=== PATIENT | female | born 1955 | race Caucasian/White ===

== ENCOUNTER → 2016-06-26 | Outpatient (CLI) | payer OTHER ==
--- NOTE | 2016-06-26 08:23 | US ---
EXAMINATION TYPE: US kidneys/renal and bladder DATE OF EXAM: 06/26/2016 8:01 AM COMPARISON: Prior renal ultrasound April 01, 2016. Prior CT abdomen and pelvis April 09, 2016. CLINICAL HISTORY: N28.89 Renal Mass. Left nephrectomy 2011 due to renal cancer, right renal cryoablat ion to mass 2012 EXAM MEASUREMENTS: Right Kidney: 10.9 x 4.9 x 5.4 cm Left Kidney: Surgically absent TECHNOLOGIST IMPRESSION: Right Kidney: hyperechoic area anterior mid, lower pole as noted on prior exam, probable scarring. Pr ominent renal pelvis Left Kidney: Surgically absent Bladder: appears wnl Bilateral Jets seen: right seen There is no evidence for hydronephrosis at this point in time in the remnant right kidney. No nephro lithiasis is seen. No masses are identified on images saved. The urinary bladder is anechoic. Dista l right jet is seen. Hypoechoic area anterior mid to lower pole level right kidney noted by technologist was not well seen on images saved. No suspicious lesion is seen on images saved or recent CT. Central anechoic fullnes s is felt to reflect prominent pelvis, no calyceal dilatation is seen to suggest hydronephrosis. IMPRESSION: No new suspicious mass identified at level of left renal fossa or within remnant right kidney.
== END ==
LOC: RADUSWWP 07:40
PROVIDERS: ATTEND Family Medicine
DX: N28.89 Other specified disorders of kidney and ureter (principal)
CPT/HCPCS: 76770

== ENCOUNTER → 2016-07-11 | Outpatient (CLI) | payer OTHER ==
[2016-07-11 14:39] LABS: Basophils # (A) 0.1 k/uL (0-0.2); Basophils % (A) 1 %; CH 28.9; CHCM 34.1; Eosinophils # (A) 0.1 k/uL (0-0.7); Eosinophils % (A) 2 %; HCT 43.4 % (34.0-46.0); HDW 2.94; HGB 14.7 gm/dL (11.4-16.0); Luc # (Auto) 0.14; Luc % (Auto) 3; Lymphocytes % (A) 18 %; MCH 28.8 pg (25.0-35.0); MCHC 33.8 g/dL (31.0-37.0); MCV 85.1 fL (80.0-100.0); Mean Platelet Volume 9.6; Monocytes # (A) 0.3 k/uL (0-1.0); Monocytes % (A) 6 %; Neutrophils # (A) 4.1 k/uL (1.3-7.7); Neutrophils % (A) 72 %; RDW 13.1 % (11.5-15.5); WBC 5.7 k/uL (3.8-10.6); WBC (Perox) 5.65
[2016-07-11 14:48] LABS: Calcium 10.1 mg/dL (8.4-10.2); Potassium 4.5 mmol/L (3.5-5.1); Total Bilirubin 1.2 mg/dL (0.2-1.3); Total Protein 7.2 g/dL (6.3-8.2)
--- NOTE | 2016-07-11 14:58 | CT ---
EXAMINATION TYPE: CT abdomen pelvis wo con DATE OF EXAM: 07/11/2016 2:39 PM COMPARISON: 04/09/2016, 07/01/2012, 08/05/2011. HISTORY: 61-year-old female right-sided abdominal pain and pain during urination. Constipation. CT DLP: 712.6 mGycm. Automated exposure control for dose reduction was used. TECHNIQUE: Contiguous axial scanning of the abdomen and pelvis without IV contrast. Coronal and sagit kristina reconstructions performed. FINDINGS: Heart is normal size without pericardial effusion. Some nodular subpleural atelectasis posterior righ t lung base. No pleural effusion. Strandy atelectasis inferior lingula. There is a small hiatal hernia. A geographic area of hypodensity measuring 1.9 cm along the falciform ligament likely focal fat, also seen on 04/09/2016 and slightly larger as compared to 07/01/2012. Otherwise, noncontrast appearance of the liver, gallbladder, adrenal glands, spleen, and pancreas casa w no gross abnormality. There is a cortical defect along the lateral right kidney suggesting prior surgical intervention. No new contour deforming right renal lesion. The left kidney is surgically absent with surgical clips in the left retroperitoneum. The left renal fossa remains clear. No dilated small bowel, free fluid, or free air. No mesenteric or retroperitoneal lymphadenopathy. Normal appendix. Scattered [id number] stool without pericolonic inflammatory change. A couple proximal sigmoid diverticula without pericolonic inflammatory change. Bladder is partially urine distended. Uterus and small ovaries are visualized. No abnormal fluid juvenal ection in the pelvis. Scattered small iliac chain lymph nodes are demonstrated. 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 Findings are stable from 2012. Degenerative disc disease lowe r lumbar spine and endplate spondylosis in the lower thoracic spine. IMPRESSION: 1. A 1.9 cm hypodense area along the falciform ligament within the left liver lobe appears to have be en present on 04/09/2016 and is larger from 2012. Focal fat is suspected but the area is incompletely characterized on this noncontrast study. Given the patient's history of renal cell carcinoma, consid er liver MRI especially if CT contrast is contraindicated. 2. Status post left nephrectomy and wedge resection along the lateral right kidney. 3. Mild proximal sigmoid diverticulosis without acute diverticulitis. 4. Small hiatal hernia.
== END ==
LOC: RADCTMAIN 14:04
PROVIDERS: ATTEND Nurse Practitioner Adult Health
DX: K44.9 Diaphragmatic hernia without obstruction or gangrene (principal); K57.30 Diverticulosis of large intestine without perforation or abscess without bleeding; K76.89 Other specified diseases of liver; Z90.5 Acquired absence of kidney; R10.9 Unspecified abdominal pain
CPT/HCPCS: 74176; 80053; 85025

== ENCOUNTER → 2016-07-29 | Outpatient (CLI) | payer OTHER ==
--- NOTE | 2016-07-29 11:31 | MR ---
MRI liver without contrast HISTORY: Hepatomegaly, abdominal pain Correlation to CT scan abdomen and pelvis without contrast dated June, prior abdomen MRI 21 July 2012 FINDINGS: The area described in prior CT scan adjacent to the falciform ligament and liver span are n ormal, there is no evident mass. Signal drop on out of phase imaging within the liver suggestive of f atty infiltration. Lack of contrast could compromise sensitivity. Postop change noted to the right kidney. Patient shows no left kidney status post left nephrectomy. A drenal glands are unremarkable. Gallbladder is normal. The spleen, pancreas are unremarkable. There is a small hiatal hernia. There i s no ascites. IMPRESSION: Fatty infiltration of the liver, there are postop changes.
== END | disposition home or self-care (01) ==
LOC: RADMRIMAIN 09:01
PROVIDERS: ATTEND Family Medicine
DX: K76.0 Fatty (change of) liver, not elsewhere classified (principal); Z90.5 Acquired absence of kidney
CPT/HCPCS: 74181

== ENCOUNTER → 2016-09-30 | Outpatient (CLI) | payer OTHER ==
[2016-09-30 10:11] LABS: Basophils % (A) 1 %; CH 29.2; CHCM 33.7; Eosinophils # (A) 0.1 k/uL (0-0.7); Eosinophils % (A) 3 %; HCT 42.3 % (34.0-46.0); Luc # (Auto) 0.16; Luc % (Auto) 4; Lymphocytes # (A) 1.1 k/uL (1.0-4.8); Lymphocytes % (A) 26 %; MCH 28.9 pg (25.0-35.0); MCHC 33.2 g/dL (31.0-37.0); MCV 87.1 fL (80.0-100.0); Mean Platelet Volume 9.7; Monocytes # (A) 0.3 k/uL (0-1.0); Monocytes % (A) 7 %; Neutrophils # (A) 2.6 k/uL (1.3-7.7); Neutrophils % (A) 60 %; RBC 4.85 m/uL (3.80-5.40); RDW 13.8 % (11.5-15.5); WBC 4.4 k/uL (3.8-10.6); WBC (Perox) 4.38
[2016-09-30 10:42] LABS: Appearance,Urine Clear (Clear); Bilirubin,Urine Negative (Negative); Glucose,Urine (UA) Negative (Negative); Ketones,Urine Negative (Negative); Leukocyte Esterase,Urine Trace (Negative); Mucus,Urine Rare /hpf; Nitrite,Urine Negative (Negative); PH, Urine 5.5 (5.0-8.0); Particle Count 880; Protein,Urine Negative (Negative); Specific Gravity,Urine 1.007 (1.001-1.035); Squamous Epithelial Cell,Urine 1 /hpf (0-4); UA Billing (MACRO vs. MICRO) MICRO; Urobilinogen,Urine <2.0 mg/dL (<2.0); WBC,Urine 2 /hpf (0-5)
[2016-09-30 11:09] LABS: Calcium 9.9 mg/dL (8.4-10.2); Magnesium 1.8 mg/dL (1.6-2.3); Phosphorous 3.5 mg/dL (2.5-4.5); Potassium 4.6 mmol/L (3.5-5.1); Total Bilirubin 1.3 mg/dL (0.2-1.3); Total Protein 6.8 g/dL (6.3-8.2); Uric Acid 7.3 mg/dL (3.7-7.4)
[2016-09-30 11:18] LABS: % Iron Saturation 20.8 % (20-50)
[2016-09-30 11:31] LABS: Creatinine,Urine Random 65.1 mg/dL
== END | disposition home or self-care (01) ==
LOC: LABWHC1 09:08
PROVIDERS: ATTEND Nurse Practitioner Family
DX: I12.9 Hypertensive chronic kidney disease with stage 1 through stage 4 chronic kidney disease, or unspecified chronic kidney disease (principal); N18.3 Chronic kidney disease, stage 3 (moderate); R80.9 Proteinuria, unspecified; D64.9 Anemia, unspecified; E55.9 Vitamin D deficiency, unspecified; E21.3 Hyperparathyroidism, unspecified; N39.0 Urinary tract infection, site not specified; M10.9 Gout, unspecified
CPT/HCPCS: 36415; 80053; 81001; 82306; 82570; 82728; 83540; 83550; 83735; 83970; 84100; 84156; 84550; 85025

== ENCOUNTER → 2016-11-21 | Outpatient (CLI) | payer OTHER ==
--- NOTE | 2016-11-21 10:26 | CT ---
EXAMINATION TYPE: CT brain wo con, CT iac wo con DATE OF EXAM: 11/21/2016 COMPARISON: CT brain 10/24/2011 HISTORY: 61-year-old female Lt sided hearing loss, dizziness TECHNIQUE: Examination of the head was done in axial plane without intravenous contrast. Coronal an d sagittal reconstructions performed. Contiguous high-resolution axial scanning of the temporal bones performed without IV contrast. Byrd l reformatted images obtained. CT DLP: 1090.4 (accession [id number]), 150 (accession [id number]) mGycm Automated exposure control for dose reduction was used. FINDINGS: BRAIN: There is no evidence of acute intracranial hemorrhage, acute ischemic changes, mass, mass-effect, or extra-axial fluid collection. There is no effacement of cerebral sulci or basal subarachnoid cister ns. There is no hydrocephalus. There is no midline shift. West-white matter distinction is preserv ed. There is a partially empty sella incidentally noted. There nasal sinuses are well pneumatized. Slight leftward nasal septal deviation. Orbits and globes a re intact. IAC: As compared to 10/24/2011, there are post resection changes involving the left mastoid air cells. Some of the residual inferior left mastoid air cells are opacified. The right mastoid air cells are well p neumatized as are the bilateral middle ear cavities. Resection changes extend to the left inner ear structures including the vestibular canals and vestibu le. There is loss of the normal delineation of the left-sided vestibular canals. No abnormality of the middle ear ossicles seen. The external auditory canals appear patent. The vestibular aqueduct are well visualized. The facial nerve canal is normal bilaterally. The internal auditory canal and meati are symmetrical bilaterally. There is no evidence of fractures. Degenerative changes at the right greater than left TMJs Reformatted images confirm above findings. COMBINED IMPRESSION: 1. No acute intracranial abnormality seen. 2. As compared to 2011, there are postresection changes involving the left mastoid process. Resection changes extend to the inner ear structures, distorting the left vestibular canals and vestibule. 3. Opacification of the residual inferior left mastoid air cells could reflect trapped fluid. Correla te for any pain here to exclude mastoiditis. 4. Right greater than left TMJ OA.
== END | disposition home or self-care (01) ==
LOC: RADCTMAIN 09:22
PROVIDERS: ATTEND Family Medicine
DX: M26.69 Other specified disorders of temporomandibular joint (principal); R42 Dizziness and giddiness
CPT/HCPCS: 70450; 70480

== ENCOUNTER → 2017-07-16 | Outpatient (CLI) | payer OTHER ==
--- NOTE | 2017-07-17 11:52 | ECHOS ---
STRESS ECHOCARDIOGRAM INDICATIONS: Chest pain. MEDICATIONS: BP, thyroid, vitamin D. BASELINE HEART RATE: 58 BASELINE BLOOD PRESSURE: 134/59 MAXIMUM HEART RATE: 130 MAXIMUM BLOOD PRESSURE: 205/70 85% MPHR: 133 100% MPHR: 157 METS: 7.0 MAXIMUM STAGE REACHED: 2 TOTAL EXERCISE TIME: 5:00 CLINICAL INFORMATION: Patient was exercised for a total period of 5 minutes. Peak heart rate of 130 was achieved. Maximum blood pressure of 205/70 mmHg was noted. Resting EKG shows normal sinus rhythm with normal IA interval and QRS duration and normal ST-T waves. No ST- segment depression suggestive of ischemia is noted. The baseline echocardiographic images reveals normal left ventricular chamber size with normal left ventricular systolic function. In the immediate post exercise, there is normal increase in the wall thickness and contractility noted. FINAL IMPRESSION: 1. This stress echocardiographic study is negative for stress-induced ischemia. 2. The test was terminated because of the patient's shortness of breath. 3. Patient's exercise tolerance is below average. MMODL / IJN: [id number] /
== END | disposition home or self-care (01) ==
LOC: RADNMMAIN 09:04
PROVIDERS: ATTEND Family Medicine
DX: R07.89 Other chest pain (principal)
CPT/HCPCS: 93017; 93350

== ENCOUNTER → 2017-10-05 | Outpatient (CLI) | payer OTHER ==
[2017-10-05 08:27] LABS: Appearance,Urine Clear (Clear); Basophils % (A) 1 %; Bilirubin,Urine Negative (Negative); Blood,Urine Negative (Negative); Color,Urine Light Yellow; Eosinophils # (A) 0.1 k/uL (0-0.7); Eosinophils % (A) 2 %; Glucose,Urine (UA) Negative (Negative); HCT 41.6 % (34.0-46.0); HGB 13.9 gm/dL (11.4-16.0); Ketones,Urine Negative (Negative); Leukocyte Esterase,Urine Negative (Negative); Lymphocytes # (A) 1.3 k/uL (1.0-4.8); Lymphocytes % (A) 21 %; MCH 28.1 pg (25.0-35.0); MCHC 33.4 g/dL (31.0-37.0); Mean Platelet Volume 8.8; Monocytes # (A) 0.4 k/uL (0-1.0); Monocytes % (A) 6 %; Neutrophils # (A) 4.1 k/uL (1.3-7.7); Neutrophils % (A) 67 %; Nitrite,Urine Negative (Negative); PH, Urine 6.5 (5.0-8.0); Platelet Count 178 k/uL (150-450); Protein,Urine Negative (Negative); RBC 4.95 m/uL (3.80-5.40); RDW 14.3 % (11.5-15.5); Specific Gravity,Urine 1.007 (1.001-1.035); Urobilinogen,Urine <2.0 mg/dL (<2.0)
[2017-10-05 08:40] LABS: Albumin 4.1 g/dL (3.5-5.0); Calcium 9.9 mg/dL (8.4-10.2); Magnesium 1.8 mg/dL (1.6-2.3); Phosphorus 4.1 mg/dL (2.5-4.5); Potassium 4.6 mmol/L (3.5-5.1); Uric Acid 6.5 mg/dL (3.7-7.4)
[2017-10-05 08:55] LABS: T4, Free (Free Thyroxine) 1.37 ng/dL (0.78-2.19)
[2017-10-05 16:47] LABS: Iron Saturation 18.54 (12.00-45.00)
[2017-10-05 16:49] LABS: Parathyroid Hormone Intact 36.6 pg/mL (14.0-72.0)
[2017-10-05 16:56] LABS: Vitamin D 25 Hydroxy 43.1 ng/mL (30.0-100.0)
== END | disposition home or self-care (01) ==
LOC: LABWHC1 07:46
PROVIDERS: ATTEND Internal Medicine Nephrology
DX: E03.9 Hypothyroidism, unspecified (principal); N18.3 Chronic kidney disease, stage 3 (moderate); D64.9 Anemia, unspecified; E55.9 Vitamin D deficiency, unspecified; N25.81 Secondary hyperparathyroidism of renal origin; M10.9 Gout, unspecified; N39.0 Urinary tract infection, site not specified
CPT/HCPCS: 36415; 80048; 81003; 82040; 82306; 82728; 83540; 83550; 83735; 83970; 84100; 84439; 84443; 84550; 85025

== ENCOUNTER → 2017-10-28 | Outpatient (CLI) | payer OTHER ==
--- NOTE | 2017-10-28 09:46 | US ---
EXAMINATION TYPE: US kidneys/renal and bladder DATE OF EXAM: 10/28/2017 COMPARISON: CT 07/11/2016, US 06/26/2016 CLINICAL HISTORY: C64.9 Malignant neoplasm of unspecified kidney. Left nephrectomy 2011 due to renal cancer, right renal cryoablation to mass 2013 EXAM MEASUREMENTS: Right Kidney: 11.4 x 4.7 x 5.5 cm Left Kidney: Surgically absent cm Right Kidney: No hydronephrosis or masses seen . Area of hyperechoic scarring from prior cryoablation is seen subtly in in the mid pole such as on image 4. Left Kidney: Surgically absent Bladder: wnl as visualized, not fully distended. Bilateral Jets seen: Right jet is visualized There is no evidence for hydronephrosis at this point in time. No nephrolithiasis is seen. No chhaya s are identified. The urinary bladder is anechoic. Right ureteral jets are seen. IMPRESSION: 1. No right-sided hydronephrosis or nephrolithiasis. Right renal scarring seen on prior exams from kn own cryoablation is redemonstrated is a focal hyperechoic area within the mid pole. 2. Surgical absence of the left kidney with no sonographic masses seen in the postsurgical bed.
== END ==
LOC: RADUSWWP 09:05
PROVIDERS: ATTEND Internal Medicine Nephrology
DX: C64.9 Malignant neoplasm of unspecified kidney, except renal pelvis (principal)
CPT/HCPCS: 76770

== ENCOUNTER 2017-12-23 09:43 | Emergency (ER) | payer OTHER ==
[2017-12-23 09:52] VITALS: RESP 18
[2017-12-23] MEDS ORDERED: SODIUM CHLORIDE 0.9% 1,000 ML IV STA (10:02)
[2017-12-23] MEDS ORDERED: ONDANSETRON 4 MG/2 ML VIAL IVP STA (10:30)
--- NOTE | 2017-12-23 10:30 | ED ---
Abdominal Pain HPI - General Chief Complaint: Abdominal Pain Stated Complaint: Rt flank pain Time Seen by Provider: 12/23/17 10:02 Source: patient, RN notes reviewed Mode of arrival: ambulatory Limitations: no limitations - History of Present Illness Initial Comments: 62-year-old female presents emergency Department with chief complaint of right lower quadrant. Patient states that she was at her primary care center here to rule out appendicitis. Patient states the pain has been present since Thursday and has not improved. She states it sharp pain. She has had prior nephrectomy in the left partial nephrectomy on the right secondary to renal cancer. Patient denies any fever, chills, night sweats. She does admit to some nausea no vomiting no diarrhea patient. Patient has no dysuria but has urinary frequency. - Related Data Home Medications Medication Instructions Recorded Confirmed Atenolol [Tenormin] 25 mg PO DAILY 03/19/16 12/23/17 Cholecalciferol [Vitamin D3] 2,000 unit PO BID 03/19/16 12/23/17 Meclizine [Antivert] 25 mg PO BID PRN 03/19/16 12/23/17 Ondansetron [Zofran] 4 mg PO DAILY PRN 03/19/16 12/23/17 Thyroid,Pork [Anderson Thyroid] 15 mg PO DAILY 03/19/16 12/23/17 traMADol HCl [Ultram] 50 mg PO TID PRN 03/19/16 12/23/17 Famotidine [Pepcid] 20 mg PO DAILY PRN 12/23/17 12/23/17 Allergies Allergy/AdvReac Type Severity Reaction Status Date / Time caffeine Allergy Unknown Verified 12/23/17 09:52 egg Allergy Unknown Verified 12/23/17 09:52 losartan Allergy Rash/Hives Verified 12/23/17 10:18 scopolamine Allergy Unknown Verified 12/23/17 09:52 sulfisoxazole Allergy Rash/Hives Verified 12/23/17 10:19 [From Gantrisin] Review of Systems ROS Statement: Those systems with pertinent positive or pertinent negative responses have been documented in the HPI. ROS Other: All systems not noted in ROS Statement are negative. Past Medical History Past Medical History: Cancer, Hypertension, Thyroid Disorder Additional Past Medical History / Comment(s): kidney cancer- removed left kidney and part of right kidney, left inner ear issues History of Any Multi-Drug Resistant Organisms: None Reported Additional Past Surgical History / Comment(s): left kidney removal and partial right side kidney removal Past Psychological History: No Psychological Hx Reported Smoking Status: Never smoker Past Alcohol Use History: None Reported Past Drug Use History: None Reported General Exam Limitations: no limitations General appearance: alert, in no apparent distress Head exam: Present: atraumatic, normocephalic, normal inspection Eye exam: Present: normal appearance, PERRL, EOMI. Absent: scleral icterus, conjunctival injection, periorbital swelling Neck exam: Present: normal inspection, full ROM. Absent: tenderness, meningismus, lymphadenopathy Respiratory exam: Present: normal lung sounds bilaterally. Absent: respiratory distress, wheezes, rales, rhonchi, stridor Cardiovascular Exam: Present: regular rate, normal rhythm, normal heart sounds. Absent: systolic murmur, diastolic murmur, rubs, gallop, clicks GI/Abdominal exam: Present: soft, tenderness (Moderate right lower quadrant), normal bowel sounds. Absent: distended, guarding, rebound, rigid Back exam: Absent: CVA tenderness (R), CVA tenderness (L) Skin exam: Present: warm, dry, intact, normal color. Absent: rash Course Vital Signs 12/23/17 12/23/17 09:49 11:39 Temperature 98.9 F Pulse Rate 71 64 Respiratory 18 18 Rate Blood Pressure 185/88 144/69 O2 Sat by Pulse 96 97 Oximetry Medical Decision Making - Medical Decision Making 62-year-old female presented from PCPs office for abdominal pain. Patient is a history of renal disease secondary to kidney cancer. Patient had CT, lab work which shows no evidence of acute appendicitis. Patient does have moderate stool burden on the right may be leading to her symptoms. Patient has a normal urinalysis. Patient is afebrile and stable. Patient follow-up with PCP. - Lab Data Result diagrams: 12/23/17 10:40 12/23/17 10:40 Lab Results 12/23/17 12/23/17 12/23/17 Range/Units 10:40 10:40 10:40 WBC 6.0 (3.8-10.6) k/uL RBC 4.70 (3.80-5.40) m/uL Hgb 13.2 (11.4-16.0) gm/dL Hct 39.6 (34.0-46.0) % MCV 84.2 (80.0-100.0) fL MCH 28.0 (25.0-35.0) pg MCHC 33.3 (31.0-37.0) g/dL RDW 13.9 (11.5-15.5) % Plt Count 156 (150-450) k/uL Neutrophils % 81 % Lymphocytes % 12 % Monocytes % 4 % Eosinophils % 1 % Basophils % 0 % Neutrophils # 4.8 (1.3-7.7) k/uL Lymphocytes # 0.7 L (1.0-4.8) k/uL Monocytes # 0.3 (0-1.0) k/uL Eosinophils # 0.1 (0-0.7) k/uL Basophils # 0.0 (0-0.2) k/uL PT (9.0-12.0) sec INR (<1.2) APTT (22.0-30.0) sec Sodium 140 (137-145) mmol/L Potassium 4.5 (3.5-5.1) mmol/L Chloride 107 (98-107) mmol/L Carbon Dioxide 24 (22-30) mmol/L Anion Gap 9 mmol/L BUN 21 H (7-17) mg/dL Creatinine 1.24 H (0.52-1.04) mg/dL Est GFR (CKD-EPI)AfAm 53 (>60 ml/min/1.73 sqM) Est GFR (CKD-EPI)NonAf 46 (>60 ml/min/1.73 sqM) Glucose 115 H (74-99) mg/dL Plasma Lactic Acid Nixon 0.9 (0.7-2.0) mmol/L Calcium 9.6 (8.4-10.2) mg/dL Total Bilirubin 1.1 (0.2-1.3) mg/dL AST 19 (14-36) U/L ALT 31 (9-52) U/L Alkaline Phosphatase 92 (38-126) U/L Total Protein 6.4 (6.3-8.2) g/dL Albumin 4.1 (3.5-5.0) g/dL Amylase 73 (30-110) U/L Lipase 98 (23-300) U/L Urine Color Urine Appearance (Clear) Urine pH (5.0-8.0) Ur Specific [place] (1.001-1.035) Urine Protein (Negative) Urine Glucose (UA) (Negative) Urine Ketones (Negative) Urine Blood (Negative) Urine Nitrite (Negative) Urine Bilirubin (Negative) Urine Urobilinogen (<2.0) mg/dL Ur Leukocyte Esterase (Negative) 12/23/17 12/23/17 Range/Units 10:40 10:45 WBC (3.8-10.6) k/uL RBC (3.80-5.40) m/uL Hgb (11.4-16.0) gm/dL Hct (34.0-46.0) % MCV (80.0-100.0) fL MCH (25.0-35.0) pg MCHC (31.0-37.0) g/dL RDW (11.5-15.5) % Plt Count (150-450) k/uL Neutrophils % % Lymphocytes % % Monocytes % % Eosinophils % % Basophils % % Neutrophils # (1.3-7.7) k/uL Lymphocytes # (1.0-4.8) k/uL Monocytes # (0-1.0) k/uL Eosinophils # (0-0.7) k/uL Basophils # (0-0.2) k/uL PT 10.1 (9.0-12.0) sec INR 1.0 (<1.2) APTT 22.5 (22.0-30.0) sec Sodium (137-145) mmol/L Potassium (3.5-5.1) mmol/L Chloride (98-107) mmol/L Carbon Dioxide (22-30) mmol/L Anion Gap mmol/L BUN (7-17) mg/dL Creatinine (0.52-1.04) mg/dL Est GFR (CKD-EPI)AfAm (>60 ml/min/1.73 sqM) Est GFR (CKD-EPI)NonAf (>60 ml/min/1.73 sqM) Glucose (74-99) mg/dL Plasma Lactic Acid Nixon (0.7-2.0) mmol/L Calcium (8.4-10.2) mg/dL Total Bilirubin (0.2-1.3) mg/dL AST (14-36) U/L ALT (9-52) U/L Alkaline Phosphatase (38-126) U/L Total Protein (6.3-8.2) g/dL Albumin (3.5-5.0) g/dL Amylase (30-110) U/L Lipase (23-300) U/L Urine Color Light Yellow Urine Appearance Clear (Clear) Urine pH 6.0 (5.0-8.0) Ur Specific [place] 1.007 (1.001-1.035) Urine Protein Negative (Negative) Urine Glucose (UA) Negative (Negative) Urine Ketones Negative (Negative) Urine Blood Negative (Negative) Urine Nitrite Negative (Negative) Urine Bilirubin Negative (Negative) Urine Urobilinogen <2.0 (<2.0) mg/dL Ur Leukocyte Esterase Negative (Negative) Disposition Clinical Impression: Abdominal pain Disposition: HOME SELF-CARE Condition: Stable Instructions: Abdominal Pain (ED) Additional Instructions: Please return to the Emergency Department if symptoms worsen or any other concerns. Is patient prescribed a controlled substance at d/c from ED?: No Referrals: Michel Cedillo MD [Primary Care Provider] - 1-2 days Time of Disposition: 11:47
[2017-12-23 10:59] LABS: Basophils % (A) 0 %; Eosinophils # (A) 0.1 k/uL (0-0.7); Eosinophils % (A) 1 %; HCT 39.6 % (34.0-46.0); HGB 13.2 gm/dL (11.4-16.0); Lymphocytes # (A) 0.7 k/uL (1.0-4.8); Lymphocytes % (A) 12 %; MCHC 33.3 g/dL (31.0-37.0); MCV 84.2 fL (80.0-100.0); Mean Platelet Volume 8.8; Monocytes # (A) 0.3 k/uL (0-1.0); Monocytes % (A) 4 %; Neutrophils # (A) 4.8 k/uL (1.3-7.7); Neutrophils % (A) 81 %; Platelet Count 156 k/uL (150-450); RDW 13.9 % (11.5-15.5)
[2017-12-23 11:00] LABS: Appearance,Urine Clear (Clear); Bilirubin,Urine Negative (Negative); Blood,Urine Negative (Negative); Color,Urine Light Yellow; Glucose,Urine (UA) Negative (Negative); Ketones,Urine Negative (Negative); Leukocyte Esterase,Urine Negative (Negative); Nitrite,Urine Negative (Negative); Protein,Urine Negative (Negative); Specific Gravity,Urine 1.007 (1.001-1.035); Urobilinogen,Urine <2.0 mg/dL (<2.0)
[2017-12-23 11:02] LABS: Albumin 4.1 g/dL (3.5-5.0); Calcium 9.6 mg/dL (8.4-10.2); Potassium 4.5 mmol/L (3.5-5.1); Total Bilirubin 1.1 mg/dL (0.2-1.3); Total Protein 6.4 g/dL (6.3-8.2)
[2017-12-23 11:09] LABS: Partial Thromboplastin Time 22.5 sec (22.0-30.0); Prothrombin Time 10.1 sec (9.0-12.0)
--- NOTE | 2017-12-23 11:43 | CT ---
EXAMINATION TYPE: CT abdomen pelvis wo con DATE OF EXAM: 12/23/2017 HISTORY: rt flank pain/pt only 1/2 of her rt kidney/lt kidney removed due to cancer CT DLP: 812.8 mGycm. Automated Exposure Control for Dose Reduction was Utilized. TECHNIQUE: CT scan of the abdomen and pelvis is performed without oral or IV contrast. COMPARISON: CT abdomen and pelvis July 11, 2016 FINDINGS: Within the limitations of a non-contrast study, the following observations are made. LUNG BASES: Mild cardiomegaly is redemonstrated. LIVER/GB: No significant abnormality is appreciated. PANCREAS: No significant abnormality is seen. SPLEEN: No significant abnormality is seen. ADRENALS: No significant abnormality is seen. KIDNEYS: Numerous clips from left-sided nephrectomy are again seen. Cortical defect right kidney rede monstrated. No renal calculi or hydronephrosis is evident in the right kidney. BOWEL: Normal-appearing appendix from cecum in right lower quadrant is identified. No suspicious smal l or large bowel dilatation is seen. Small size hiatal hernia on current study is noted. Few scattere d colonic diverticula are redemonstrated. No CT evidence for acute diverticulitis. GENITAL ORGANS: Anteverted uterus is seen. Few scattered pelvic phleboliths are present. LYMPH NODES: No greater than 1cm abdominal or pelvic lymph nodes are appreciated. OSSEOUS STRUCTURES: There is moderate disc space narrowing with spurring L5-S1 level. There is facet arthropathy lower lumbar levels. There is redemonstration of osteitis condensans ilii with sclerosis along sacral portion of bilateral SI joints. OTHER: Small fat-containing umbilical hernia is redemonstrated. IMPRESSION: No right-sided renal stones or hydronephrosis is seen bilaterally. No suspicious new or a cute finding is seen to account for patient's symptoms.
[2017-12-23 12:38] VITALS: BP 148/69; PULSE 68; TEMP 98.3
== END 2017-12-23 12:30 | disposition home or self-care (01) ==
LOC: EC 09:43
DX: R10.31 Right lower quadrant pain (principal); R11.0 Nausea; R35.0 Frequency of micturition; I10 Essential (primary) hypertension; E07.9 Disorder of thyroid, unspecified; Z85.528 Personal history of other malignant neoplasm of kidney; Z79.899 Other long term (current) drug therapy; Z91.012 Allergy to eggs; Z91.018 Allergy to other foods; Z88.8 Allergy status to other drugs, medicaments and biological substances; Z90.5 Acquired absence of kidney
CPT/HCPCS: 36415; 80053; 82150; 83605; 83690; 85025; 85610; 85730; 81003; 74176; 99284; 96374; 96361; J2405

== ENCOUNTER → 2018-04-12 | Outpatient (CLI) | payer OTHER ==
[2018-04-12 09:16] LABS: Appearance,Urine Clear (Clear); Bilirubin,Urine Negative (Negative); Blood,Urine Negative (Negative); Color,Urine Light Yellow; Glucose,Urine (UA) Negative (Negative); Ketones,Urine Negative (Negative); Leukocyte Esterase,Urine Negative (Negative); Nitrite,Urine Negative (Negative); PH, Urine 6.5 (5.0-8.0); Protein,Urine Negative (Negative); Specific Gravity,Urine 1.012 (1.001-1.035); Urobilinogen,Urine <2.0 mg/dL (<2.0)
[2018-04-12 09:17] LABS: Basophils # (A) 0.1 k/uL (0-0.2); Basophils % (A) 1 %; Eosinophils # (A) 0.1 k/uL (0-0.7); Eosinophils % (A) 3 %; HCT 40.8 % (34.0-46.0); HGB 13.9 gm/dL (11.4-16.0); Lymphocytes # (A) 1.2 k/uL (1.0-4.8); Lymphocytes % (A) 23 %; MCH 28.8 pg (25.0-35.0); MCV 84.8 fL (80.0-100.0); Mean Platelet Volume 8.9; Monocytes # (A) 0.4 k/uL (0-1.0); Monocytes % (A) 7 %; Neutrophils # (A) 3.3 k/uL (1.3-7.7); Neutrophils % (A) 64 %; Platelet Count 161 k/uL (150-450); RBC 4.81 m/uL (3.80-5.40); RDW 13.8 % (11.5-15.5); WBC 5.2 k/uL (3.8-10.6)
[2018-04-12 15:35] LABS: Iron Saturation 20.32 (12.00-45.00)
[2018-04-12 16:09] LABS: Anion Gap 7.5 mmol/L (4.00-12.00); Calcium 9.5 mg/dL (8.7-10.3); Carbon Dioxide 25.5 mmol/L (21.6-31.8); Potassium 4.4 mmol/L (3.5-5.5); Uric Acid 7.9 mg/dL (2.9-7.7)
== END ==
LOC: LABWHC1 08:17
PROVIDERS: ATTEND Nurse Practitioner Family
DX: N39.0 Urinary tract infection, site not specified (principal); D63.1 Anemia in chronic kidney disease; N18.3 Chronic kidney disease, stage 3 (moderate); M10.9 Gout, unspecified
CPT/HCPCS: 36415; 80048; 81003; 82728; 83540; 83550; 84550; 85025

== ENCOUNTER → 2019-03-10 | Outpatient (CLI) | payer MEDICARE ==
--- NOTE | 2019-03-11 13:21 | MM ---
Reason for exam: screening (asymptomatic). Last mammogram was performed 3 years and 3 months ago. History: Patient is postmenopausal and history of other cancer. Physical Findings: A clinical breast exam by your physician is recommended on an annual basis and results should be correlated with mammographic findings. MG Screening Mammo w CAD Bilateral CC and MLO view(s) were taken. Prior study comparison: December 05, 2015, bilateral MG screening mammo w CAD. The breast tissue is heterogeneously dense. This may lower the sensitivity of mammography. Finding #1: There is a 7 mm obscured round mass in the lower quadrant, anterior, central position of the left breast. Finding #2: There are typically benign round calcifications in both breasts. ASSESSMENT: Incomplete: need additional imaging evaluation, BI-RAD 0 RECOMMENDATION: Special view mammogram and ultrasound of the left breast. [facility] will attempt to contact patient to return for supplemental views and ultrasound.
== END | disposition home or self-care (01) ==
LOC: RADMAMWWP 16:59
PROVIDERS: ATTEND Family Medicine
DX: Z12.31 Encounter for screening mammogram for malignant neoplasm of breast (principal)
CPT/HCPCS: 77067

== ENCOUNTER → 2019-03-23 | Outpatient (CLI) | payer MEDICARE ==
--- NOTE | 2019-03-23 14:44 | MM ---
Reason for exam: additional evaluation requested from abnormal screening. Last mammogram was performed less than 1 month ago. History: Patient is postmenopausal and history of other cancer. Physical Findings: Nurse did not find any significant physical abnormalities on exam. MG Work Up Mamm w CAD LT Spot compression CC, spot compression MLO, and ML view(s) were taken of the left breast. Prior study comparison: March 10, 2019, bilateral MG screening mammo w CAD. December 05, 2015, bilateral MG screening mammo w CAD. The breast tissue is heterogeneously dense. This may lower the sensitivity of mammography. There is a persistent 4mm lower outer quadrant mass 3-4cm from nipple. These results were verbally communicated with the patient and result sheet given to the patient on 03/23/19. ASSESSMENT: Incomplete: need additional imaging evaluation, BI-RAD 0 RECOMMENDATION: Ultrasound of the left breast.
--- NOTE | 2019-03-23 14:46 | USB ---
Reason for exam: additional evaluation requested from abnormal screening. History: Patient is postmenopausal and history of other cancer. US Breast Workup Limited LT Left limited breast ultrasound including focal area of concern, retroareolar and axilla demonstrates a 4 x 3 x 3mm oval, hypoechoic lesion at 3 o'clock, questionable lymph node, a 6 x 4 x 5mm oval, cystic lesion at 6 o'clock corresponds with mammographic finding and duct ectasia at the posterior nipple. These results were verbally communicated with the patient and result sheet given to the patient on 03/23/19. ASSESSMENT: Benign, BI-RAD 2 RECOMMENDATION: Return to routine screening mammogram schedule for both breasts.
== END | disposition home or self-care (01) ==
LOC: RADMAMWWP 13:27
PROVIDERS: ATTEND Family Medicine
DX: R92.8 Other abnormal and inconclusive findings on diagnostic imaging of breast (principal)
CPT/HCPCS: 77065

== ENCOUNTER 2020-04-30 02:38 | Emergency (ER) | payer MEDICARE ==
[2020-04-30 02:45] VITALS: BP 196/117; PULSE 67; RESP 18; TEMP 98.2
[2020-04-30] MEDS ORDERED: Acetaminophen-Codeine 300-30mg TAB PO STA (02:57)
[2020-04-30] MEDS ORDERED: ACET/COD 300 MG/30 MG STARTER PACK 6 TAB BTL PO STA (02:57)
[2020-04-30] MEDS ORDERED: KETOROLAC 15 MG/ML 1 ML VIAL IM STA (02:57)
[2020-04-30] MEDS ORDERED: KETOROLAC 15 MG/ML 1 ML VIAL ONE (03:00)
--- NOTE | 2020-04-30 03:25 | ED ---
Back Pain HPI - General Chief Complaint: Back Pain/Injury Stated Complaint: Back pain Time Seen by Provider: 04/30/20 02:40 Source: patient, RN notes reviewed, old records reviewed Limitations: no limitations - History of Present Illness Initial Comments: This is a 65-year-old female DF for evaluation of back pain patient has persistent back pain since a twisting injury a while back. Patient has no new traumas. No loss of bowel or bladder. No neurological complaints. No prior history of similar pain. MD Complaint: back pain, back injury -: week(s) Similar Symptoms Previously: Yes Place: home Radiation: none Severity: moderate Severity scale (1-10): 7 Quality: sharp, dull Consistency: constant Improves With: none Worsens With: movement Context: while lifting, turning/twisting Associated Symptoms: denies other symptoms - Related Data Home Medications Medication Instructions Recorded Confirmed Cholecalciferol [Vitamin D3] 2,000 unit PO BID 03/19/16 12/23/17 Meclizine [Antivert] 25 mg PO BID PRN 03/19/16 12/23/17 Ondansetron [Zofran] 4 mg PO DAILY PRN 03/19/16 12/23/17 Thyroid,Pork [[place] Thyroid] 15 mg PO DAILY 03/19/16 12/23/17 atenoloL [Tenormin] 25 mg PO DAILY 03/19/16 12/23/17 traMADol HCl [Ultram] 50 mg PO TID PRN 03/19/16 12/23/17 Famotidine [Pepcid] 20 mg PO DAILY PRN 12/23/17 12/23/17 Allergies Allergy/AdvReac Type Severity Reaction Status Date / Time caffeine Allergy Unknown Verified 04/30/20 02:46 egg Allergy Unknown Verified 04/30/20 02:46 losartan Allergy Rash/Hives Verified 04/30/20 02:46 scopolamine Allergy Unknown Verified 04/30/20 02:46 sulfisoxazole Allergy Rash/Hives Verified 04/30/20 02:46 [From Gantrisin] Review of Systems ROS Statement: Those systems with pertinent positive or pertinent negative responses have been documented in the HPI. ROS Other: All systems not noted in ROS Statement are negative. Past Medical History Past Medical History: Cancer, Hypertension, Thyroid Disorder Additional Past Medical History / Comment(s): kidney cancer- removed left kidney and part of right kidney, left inner ear issues History of Any Multi-Drug Resistant Organisms: None Reported Past Surgical History: Ear Surgery Additional Past Surgical History / Comment(s): left kidney removal and partial right side kidney removal Past Psychological History: No Psychological Hx Reported Smoking Status: Never smoker Past Alcohol Use History: None Reported Past Drug Use History: None Reported General Exam Limitations: no limitations General appearance: alert, in no apparent distress Head exam: Present: atraumatic, normocephalic, normal inspection Eye exam: Present: normal appearance, PERRL, EOMI. Absent: scleral icterus, conjunctival injection, periorbital swelling ENT exam: Present: normal exam, mucous membranes moist Neck exam: Present: normal inspection. Absent: tenderness, meningismus, lymphadenopathy Respiratory exam: Present: normal lung sounds bilaterally. Absent: respiratory distress, wheezes, rales, rhonchi, stridor Cardiovascular Exam: Present: regular rate, normal rhythm, normal heart sounds. Absent: systolic murmur, diastolic murmur, rubs, gallop, clicks GI/Abdominal exam: Present: soft, normal bowel sounds. Absent: distended, tenderness, guarding, rebound, rigid Extremities exam: Present: normal inspection, full ROM, normal capillary refill. Absent: tenderness, pedal edema, joint swelling, calf tenderness Back exam: Present: normal inspection Neurological exam: Present: alert, oriented X3, CN II-XII intact Psychiatric exam: Present: normal affect, normal mood Skin exam: Present: warm, dry, intact, normal color. Absent: rash Course Vital Signs 04/30/20 02:42 Temperature 98.2 F Pulse Rate 67 Respiratory 18 Rate Blood Pressure 196/117 O2 Sat by Pulse 99 Oximetry - Reevaluation(s) Reevaluation #1: Medical record is reviewed Patient has significant improvement in symptoms Patient has no recent change in complaints Patient and mother informed of results and questions have been answered Patient feels good for discharge Medical Decision Making - Medical Decision Making 65 female DF for evaluation of back pain, patient will be discharged home and patient is given pain control - Radiology Data Radiology results: report reviewed (CT head and pelvis is negative for acute disease), image reviewed Disposition Clinical Impression: Mechanical back pain, Strain of lumbar region Disposition: HOME SELF-CARE Condition: Good Instructions (If sedation given, give patient instructions): Acute Low Back Pain (ED) Is patient prescribed a controlled substance at d/c from ED?: No Referrals: Michel Cedillo MD [Primary Care Provider] - 1-2 days
--- NOTE | 2020-04-30 03:28 | CT ---
EXAM: CT Abdomen and Pelvis Without Intravenous Contrast CLINICAL HISTORY: Left flank pain and back pain. TECHNIQUE: Axial computed tomography images of the abdomen and pelvis without intravenous contrast. CTDI is 15.57 mGy and DLP is 794 mGy-cm. This CT exam was performed using one or more of the following dose reduction techniques: automated exposure control, adjustment of the mA and/or kV according to patient size, and/or use of iterative reconstruction technique. COMPARISON: 12/23/2017 FINDINGS: Lung bases: Unremarkable. No mass. No consolidation. ABDOMEN: Liver: Unremarkable. Gallbladder and bile ducts: Unremarkable. No calcified stones. No ductal dilation. Pancreas: Unremarkable. No ductal dilation. Spleen: Unremarkable. No splenomegaly. Adrenals: Unremarkable. No mass. Kidneys and ureters: Left nephrectomy, stable from the previous exam. The unenhanced right kidney demonstrates stable lobulation and mild rotation. No nephrolithiasis or hydronephrosis. Stomach and bowel: Evaluation of the bowel mucosa is slightly limited without contrast; however, no definite focal asymmetry suggested. No evidence for bowel obstruction. Scattered rare diverticulosis in the sigmoid colon without findings to suggest diverticulitis. PELVIS: Appendix: A normal caliber appendix is noted in the right lower quadrant. Bladder: Mucosal prominence of the bladder is noted with minimal distention. No stones. Reproductive: Unremarkable as visualized. ABDOMEN and PELVIS: Intraperitoneal space: Unremarkable. No free air. No significant fluid collection. Bones/joints: No acute fracture. No dislocation. Soft tissues: Unremarkable. Vasculature: Unremarkable. No abdominal aortic aneurysm. Lymph nodes: Unremarkable. No enlarged lymph nodes. IMPRESSION: 1. Evaluation of the bowel mucosa is slightly limited without contrast; however, no definite focal asymmetry suggested. No evidence for bowel obstruction. Scattered rare diverticulosis in the sigmoid colon without findings to suggest diverticulitis. No free intraperitoneal fluid or pneumoperitoneum. 2. Mucosal prominence of the bladder is presumed related to underdistention. However, please correlate with urinalysis, as appropriate. 3. Left nephrectomy. No significant interval change in the operative bed. The unenhanced right kidney is stable in appearance.
== END 2020-04-30 03:51 | disposition home or self-care (01) ==
LOC: EC 02:38
DX: S39.012A Strain of muscle, fascia and tendon of lower back, initial encounter (principal); M54.9 Dorsalgia, unspecified; I10 Essential (primary) hypertension; E07.9 Disorder of thyroid, unspecified; Z79.890 Hormone replacement therapy; Z91.018 Allergy to other foods; Z91.012 Allergy to eggs; Z88.2 Allergy status to sulfonamides; Z88.8 Allergy status to other drugs, medicaments and biological substances; Z85.528 Personal history of other malignant neoplasm of kidney; Z90.5 Acquired absence of kidney; X50.0XXA Overexertion from strenuous movement or load, initial encounter
CPT/HCPCS: 74176; 99284; 96372; J1885

== ENCOUNTER 2023-01-15 17:38 | Emergency (ER) | payer OTHER ==
[2023-01-15 18:02] VITALS: TEMP 97.6
[2023-01-15] MEDS ORDERED: KETOROLAC 15 MG/ML 1 ML VIAL IVP STA (18:55)
[2023-01-15] MEDS ORDERED: SODIUM CHLORIDE 0.9% 500 ML 500 ML IV STA (18:55)
[2023-01-15] MEDS ORDERED: ONDANSETRON 4 MG/2 ML VIAL IVP STA (18:56)
--- NOTE | 2023-01-15 19:05 | ED ---
Nausea/Vomiting/Diarrhea HPI - General Chief complaint: Nausea/Vomiting/Diarrhea Stated complaint: rash Time Seen by Provider: 01/15/23 18:12 Source: patient, RN notes reviewed, old records reviewed Mode of arrival: ambulatory Limitations: no limitations - History of Present Illness Initial comments: 67-year-old female, alert and oriented 4, presents to the emergency room with family complaining of abdominal pain that started this morning with nausea. Denies any vomiting and no diarrhea. No fevers but does state she has chills. She also states she has a rash for the past 3 months to both of her hands, her lower back and her feet. Did see Dr. Cedillo and 5 other doctors regarding this rash. Originally told it was poison gila then told dermatitis and last visit Dr Cedillo told her she has scabies and was given a cream that does not seem to be improving. Patient has a history of kidney cancer, hypertension and hypothyroidism. MD complaint: nausea, abdominal pain -: hour(s) Associated Abdominal Pain: Yes Location: RUQ, RLQ Severity scale (1-10): 5 Quality: sharp Consistency: constant Improves with: none Associated Symptoms: rash - Related Data Home Medications Medication Instructions Recorded Confirmed Cholecalciferol [Vitamin D3] 2,000 unit PO BID 03/19/16 12/23/17 Meclizine [Antivert] 25 mg PO BID PRN 03/19/16 12/23/17 Ondansetron [Zofran] 4 mg PO DAILY PRN 03/19/16 12/23/17 Thyroid,Pork [[place] Thyroid] 15 mg PO DAILY 03/19/16 12/23/17 atenoloL [Tenormin] 25 mg PO DAILY 03/19/16 12/23/17 traMADol HCl [Ultram] 50 mg PO TID PRN 03/19/16 12/23/17 Famotidine [Pepcid] 20 mg PO DAILY PRN 12/23/17 12/23/17 Allergies Allergy/AdvReac Type Severity Reaction Status Date / Time caffeine Allergy Unknown Verified 01/15/23 17:58 egg Allergy Unknown Verified 01/15/23 17:58 losartan Allergy Rash/Hives Verified 01/15/23 17:58 scopolamine Allergy Unknown Verified 01/15/23 17:58 sulfisoxazole Allergy Rash/Hives Verified 01/15/23 17:58 [From Gantrisin] Review of Systems ROS Statement: Those systems with pertinent positive or pertinent negative responses have been documented in the HPI. ROS Other: All systems not noted in ROS Statement are negative. Past Medical History Past Medical History: Cancer, Hypertension, Thyroid Disorder Additional Past Medical History / Comment(s): kidney cancer- removed left kidney and part of right kidney, left inner ear issues History of Any Multi-Drug Resistant Organisms: None Reported Past Surgical History: Ear Surgery Additional Past Surgical History / Comment(s): left kidney removal and partial right side kidney removal Past Psychological History: No Psychological Hx Reported Smoking Status: Never smoker Past Alcohol Use History: None Reported Past Drug Use History: None Reported General Exam Limitations: no limitations General appearance: alert, in no apparent distress Head exam: Present: atraumatic Eye exam: Present: normal appearance. Absent: scleral icterus, conjunctival injection, periorbital swelling Neck exam: Present: full ROM. Absent: meningismus Respiratory exam: Present: normal lung sounds bilaterally. Absent: respiratory distress, accessory muscle use Cardiovascular Exam: Present: regular rate GI/Abdominal exam: Present: soft, tenderness (RUQ RLQ), other (old surgical scar left upper abd). Absent: distended, mass Extremities exam: Present: full ROM, normal capillary refill. Absent: pedal edema Back exam: Present: rash noted (lumbar sacral maculopapular). Absent: tenderness, CVA tenderness (R), CVA tenderness (L) Neurological exam: Present: alert, oriented X3 Psychiatric exam: Present: normal affect, normal mood Skin exam: Present: warm, dry, normal color, rash (lumbar sacral, b/l groin, feet, palms of both hands and webbing of fingers, dried scale, no vesicles, maculopapular low back and bilateral groin). Absent: cyanosis, diaphoretic Course Vital Signs 01/15/23 01/15/23 01/15/23 17:58 19:55 22:00 Temperature 97.6 F Pulse Rate 89 79 89 Respiratory 16 18 18 Rate Blood Pressure 177/81 171/81 152/73 O2 Sat by Pulse 100 97 98 Oximetry Medical Decision Making - Medical Decision Making Was pt. sent in by a medical professional or institution (, PA, SCHOOL BUS OPERATOR, urgent care, hospital, or long-term...) When possible be specific @ -No Did you speak to anyone other than the patient for history (EMS, parent, family, police, friend...)? What history was obtained from this source @ -No Did you review nursing and triage notes (agree or disagree)? Why? @ -I reviewed and agree with nursing and triage notes Were old charts reviewed (outside hosp., previous admission, EMS record, old EKG, old radiological studies, urgent care reports/EKG's, long-term records)? Report findings @ -Previous labs March 2018, EKG March 2016 Differential Diagnosis (chest pain, altered mental status, abdominal pain women, abdominal pain men, vaginal bleeding, weakness, fever, dyspnea, syncope, headache, dizziness, GI bleed, back pain, seizure, CVA, palpatations, mental health, musculoskeletal)? @ -Differential Abdominal Pain Women: Appendicitis, Cholecystitis, diverticulosis, ischemic bowel, pancreatitis, hepatitis, UTI, gastroenteritis, AAA, incarcerated hernia, bowel obstruction, constipation, inflammatory bowel, hepatitis, peptic ulcer disease, splenic inf arction, perforated viscus, vulvitis, ovarian torsion, PID, kidney stone, placenta abruption, this is not meant to be an all-inclusive list EKG interpreted by me (3pts min.). @ -yes EKG interpreted by me shows sinus rhythm with a ventricular rate of 80, MN interval 0.191, QRS 0.90, QTC 0.395 no concerning changes compared to old 03/19/2016 X-rays interpreted by me (1pt min.). @ -None done CT interpreted by me (1pt min.). @ -None done U/S interpreted by me (1pt. min.). @ -yes Ultrasound interpreted by me shows no evidence of gallstones. Common bile duct does not appear to be dilated. What testing was considered but not performed or refused? (CT, X-rays, U/S, labs)? Why? @ -None What meds were considered but not given or refused? Why? @ -None Did you discuss the management of the patient with other professionals (professionals i.e. , PA, SCHOOL BUS OPERATOR, lab, RT, psych nurse, social science manager, flight software test engineer, teacher, medical officer psychiatry, corrections caseworker)? Give summary @ -No Was smoking cessation discussed for >3mins.? @ -No Was critical care preformed (if so, how long)? @ -No Were there social determinants of health that impacted care today? How? (Homelessness, low income, unemployed, alcoholism, drug addiction, transportation, low edu. Level, literacy, decrease access to med. care, fpc, rehab)? @ -No Was there de-escalation of care discussed even if they declined (Discuss DNR or withdrawal of care, Hospice)? DNR status @ -No What co-morbidities impacted this encounter? (DM, HTN, Smoking, COPD, CAD, Cancer, CVA, ARF, Chemo, Hep., AIDS, mental health diagnosis, sleep apnea, morbid obesity)? @ -History of kidney cancer, hypertension, thyroid disorder Was patient admitted / discharged? Hospital course, mention meds given and route, prescriptions, significant lab abnormalities, going to OR and other pertinent info. @ -Discharged 67-year-old female, alert and oriented 4, presents to the emergency room with family complaining of abdominal pain that started this morning with nausea. Denies any vomiting and no diarrhea. No fevers but does state she has chills. She also states she has a rash for the past 3 months to both of her hands, her lower back and her feet. Did see Dr. Cedillo and 5 other doctors regarding this rash. Originally told it was poison gila then told dermatitis and last visit Dr Cedillo told her she has scabies and was given a cream that does not seem to be improving. Patient has a history of kidney cancer, hypertension and hypothyroidism. EKG interpreted by me shows sinus rhythm with a ventricular rate of 80, MN interval 0.191, QRS 0.90, QTC 0.395 no concerning changes compared to old 03/19/2016 Creatinine 1.15 which is consistent with previous labs, March 2018 1.2. Total bili 2.0, lactic acid 1.2. Potassium 5.4 Troponin negative at 0.012. CRP negative at 0.6 Ultrasound gallbladder interpreted by radiologist no Evidence for Acute Process, hepatic steatosis noted. Ultrasound abdomen appendix shows no visualization of the appendix. Does not exclude diagnosis of acute appendicitis. Labs show no evidence of leukocytosis. Abdomen soft and minimally tender right upper quadrant. Vital signs are stable. Denies any diarrhea. No fevers. Patient states in the past she had a similar rash from a reaction to her blood pressure medications and she is concerned that this may be a drug reaction. She does have an appointment with Dr. Edwards the film examiner on the to discuss the rash that she has had for 3 months. She was encouraged to take Benadryl 25-50 mg every 8 hours as needed for itching. Tylenol as needed for discomfot. She is agreeable to discharge. Case discussed with Dr. Cortes Undiagnosed new problem with uncertain prognosis? @ -No Drug Therapy requiring intensive monitoring for toxicity (Heparin, Nitro, Insulin, Cardizem)? @ -No Were any procedures done? @ -No Diagnosis/symptom? @ -Abdominal pain, dermatitis Acute, or Chronic, or Acute on Chronic? @ -Acute abdominal pain, acute on chronic rash Uncomplicated (without systemic symptoms) or Complicated (systemic symptoms)? @ -Uncomplicated Side effects of treatment? @ -No Exacerbation, Progression, or Severe Exacerbation? @ -No Poses a threat to life or bodily function? How? (Chest pain, USA, IA, pneumonia, PE, COPD, DKA, ARF, appy, cholecystitis, CVA, Diverticulitis, Homicidal, Suicidal, threat to staff... and all critical care pts) @ -No - Lab Data Result diagrams: 01/15/23 19:04 01/15/23 19:04 Lab Results 01/15/23 01/15/23 01/15/23 Range/Units 19:04 19:04 19:04 WBC 8.1 (3.8-10.6) k/uL RBC 5.00 (3.80-5.40) m/uL Hgb 14.7 (11.4-16.0) gm/dL Hct 43.0 (34.0-46.0) % MCV 86.0 (80.0-100.0) fL MCH 29.4 (25.0-35.0) pg MCHC 34.2 (31.0-37.0) g/dL RDW 14.0 (11.5-15.5) % Plt Count 176 (150-450) k/uL MPV 10.7 Neutrophils % 74 % Lymphocytes % 14 % Monocytes % 7 % Eosinophils % 2 % Basophils % 0 % Neutrophils # 6.0 (1.3-7.7) k/uL Lymphocytes # 1.2 (1.0-4.8) k/uL Monocytes # 0.6 (0-1.0) k/uL Eosinophils # 0.2 (0-0.7) k/uL Basophils # 0.0 (0-0.2) k/uL ESR (0-20) mm/hr PT 10.3 (9.0-12.0) sec INR 1.0 (<1.2) APTT 22.4 (22.0-30.0) sec Sodium 138 (137-145) mmol/L Potassium 5.4 H (3.5-5.1) mmol/L Chloride 106 (98-107) mmol/L Carbon Dioxide 22 (22-30) mmol/L Anion Gap 10 mmol/L BUN 20 H (7-17) mg/dL Creatinine 1.15 H (0.52-1.04) mg/dL Est GFR (CKD-EPI)AfAm 57 (>60 ml/min/1.73 sqM) Est GFR (CKD-EPI)NonAf 49 (>60 ml/min/1.73 sqM) Glucose 126 H (74-99) mg/dL Plasma Lactic Acid Nixon (0.7-2.0) mmol/L Calcium 10.0 (8.4-10.2) mg/dL Total Bilirubin 2.0 H (0.2-1.3) mg/dL AST 50 H (14-36) U/L ALT 23 (4-34) U/L Alkaline Phosphatase 97 (38-126) U/L Troponin I (0.000-0.034) ng/mL C-Reactive Protein (<1.0) mg/dL Total Protein 8.2 (6.3-8.2) g/dL Albumin 5.0 (3.5-5.0) g/dL Amylase 76 (30-110) U/L Lipase 99 (23-300) U/L 01/15/23 01/15/23 01/15/23 Range/Units 19:04 19:04 19:05 WBC (3.8-10.6) k/uL RBC (3.80-5.40) m/uL Hgb (11.4-16.0) gm/dL Hct (34.0-46.0) % MCV (80.0-100.0) fL MCH (25.0-35.0) pg MCHC (31.0-37.0) g/dL RDW (11.5-15.5) % Plt Count (150-450) k/uL MPV Neutrophils % % Lymphocytes % % Monocytes % % Eosinophils % % Basophils % % Neutrophils # (1.3-7.7) k/uL Lymphocytes # (1.0-4.8) k/uL Monocytes # (0-1.0) k/uL Eosinophils # (0-0.7) k/uL Basophils # (0-0.2) k/uL ESR 13 (0-20) mm/hr PT (9.0-12.0) sec INR (<1.2) APTT (22.0-30.0) sec Sodium (137-145) mmol/L Potassium (3.5-5.1) mmol/L Chloride (98-107) mmol/L Carbon Dioxide (22-30) mmol/L Anion Gap mmol/L BUN (7-17) mg/dL Creatinine (0.52-1.04) mg/dL Est GFR (CKD-EPI)AfAm (>60 ml/min/1.73 sqM) Est GFR (CKD-EPI)NonAf (>60 ml/min/1.73 sqM) Glucose (74-99) mg/dL Plasma Lactic Acid Nixon 1.2 (0.7-2.0) mmol/L Calcium (8.4-10.2) mg/dL Total Bilirubin (0.2-1.3) mg/dL AST (14-36) U/L ALT (4-34) U/L Alkaline Phosphatase (38-126) U/L Troponin I <0.012 (0.000-0.034) ng/mL C-Reactive Protein (<1.0) mg/dL Total Protein (6.3-8.2) g/dL Albumin (3.5-5.0) g/dL Amylase (30-110) U/L Lipase (23-300) U/L 01/15/23 Range/Units 19:05 WBC (3.8-10.6) k/uL RBC (3.80-5.40) m/uL Hgb (11.4-16.0) gm/dL Hct (34.0-46.0) % MCV (80.0-100.0) fL MCH (25.0-35.0) pg MCHC (31.0-37.0) g/dL RDW (11.5-15.5) % Plt Count (150-450) k/uL MPV Neutrophils % % Lymphocytes % % Monocytes % % Eosinophils % % Basophils % % Neutrophils # (1.3-7.7) k/uL Lymphocytes # (1.0-4.8) k/uL Monocytes # (0-1.0) k/uL Eosinophils # (0-0.7) k/uL Basophils # (0-0.2) k/uL ESR (0-20) mm/hr PT (9.0-12.0) sec INR (<1.2) APTT (22.0-30.0) sec Sodium (137-145) mmol/L Potassium (3.5-5.1) mmol/L Chloride (98-107) mmol/L Carbon Dioxide (22-30) mmol/L Anion Gap mmol/L BUN (7-17) mg/dL Creatinine (0.52-1.04) mg/dL Est GFR (CKD-EPI)AfAm (>60 ml/min/1.73 sqM) Est GFR (CKD-EPI)NonAf (>60 ml/min/1.73 sqM) Glucose (74-99) mg/dL Plasma Lactic Acid Nixon (0.7-2.0) mmol/L Calcium (8.4-10.2) mg/dL Total Bilirubin (0.2-1.3) mg/dL AST (14-36) U/L ALT (4-34) U/L Alkaline Phosphatase (38-126) U/L Troponin I (0.000-0.034) ng/mL C-Reactive Protein 0.6 (<1.0) mg/dL Total Protein (6.3-8.2) g/dL Albumin (3.5-5.0) g/dL Amylase (30-110) U/L Lipase (23-300) U/L - EKG Data -: EKG Interpreted by Me EKG shows normal: sinus rhythm (EKG interpreted by me shows sinus rhythm with a ventricular rate of 80, MN interval 0.191, QRS 0.90, QTC 0.395) Disposition Clinical Impression: Dermatitis, Abdominal pain Disposition: HOME SELF-CARE Instructions (If sedation given, give patient instructions): Abdominal Pain (ED), Dermatitis (ED) Additional Instructions: Follow-up with dermatology as scheduled on February 03. You can take Benadryl 25-50 mg every 8 hours as needed for itching. Follow-up with the primary care doctor this week. Return to the emergency room with any new or concerning symptoms. Is patient prescribed a controlled substance at d/c from ED?: No Referrals: Michel Cedillo MD [Primary Care Provider] - 1-2 days Time of Disposition: 22:00
[2023-01-15 19:23] LABS: Basophils % (A) 0 %; Eosinophils # (A) 0.2 k/uL (0-0.7); Eosinophils % (A) 2 %; HGB 14.7 gm/dL (11.4-16.0); Lymphocytes # (A) 1.2 k/uL (1.0-4.8); Lymphocytes % (A) 14 %; MCH 29.4 pg (25.0-35.0); MCHC 34.2 g/dL (31.0-37.0); Mean Platelet Volume 10.7; Monocytes # (A) 0.6 k/uL (0-1.0); Monocytes % (A) 7 %; Neutrophils % (A) 74 %; Platelet Count 176 k/uL (150-450); WBC 8.1 k/uL (3.8-10.6)
[2023-01-15 19:36] LABS: ALT 23 U/L (4-34); AST 50 U/L (14-36); African American GFR (CKD) 57 (>60 ml/min/1.73 sqM); Alkaline Phosphatase 97 U/L (38-126); Amylase 76 U/L (30-110); Anion Gap 10 mmol/L; Blood Urea Nitrogen 20 mg/dL (7-17); Carbon Dioxide 22 mmol/L (22-30); Chloride 106 mmol/L (98-107); Glucose 126 mg/dL (74-99); Lipase 99 U/L (23-300); Non-African American GFR(CKD) 49 (>60 ml/min/1.73 sqM); Potassium 5.4 mmol/L (3.5-5.1); Sodium 138 mmol/L (137-145); Total Protein 8.2 g/dL (6.3-8.2)
[2023-01-15 19:45] LABS: Partial Thromboplastin Time 22.4 sec (22.0-30.0); Prothrombin Time 10.3 sec (9.0-12.0)
[2023-01-15 19:56] VITALS: RESP 18
--- NOTE | 2023-01-15 21:20 | US ---
EXAMINATION TYPE: US gallbladder DATE OF EXAM: 01/15/2023 COMPARISON: CT: 04/30/20 CLINICAL INDICATION: Female, 67 years old with history of abdominal pain; abd pain TECHNIQUE: Multiple sonographic images of the right upper quadrant are obtained. FINDINGS: EXAM MEASUREMENTS: Liver Length: 11.7 cm Gallbladder Wall: 0.21 cm CBD: 0.45 cm Right Kidney: 12.1 x 5.6 x 5.3 cm FIELD SERVICES DIRECTOR NOTES: Pancreas: Duct measuring 2.4mm Liver: Heterogeneous. Slightly limited due to body habitus Gallbladder: wnl Evidence for sonographic Lyon's sign: No CBD: wnl Right Kidney: wnl Heterogenous hyperechoic liver echotexture without focal lesion. Pancreas is unremarkable. Gallbladde r is unremarkable without evidence of cholelithiasis, wall thickening, or pericholecystic fluid. Per appraisal analyst, negative sonographic Lyon sign. Common bile duct within normal limits. Right kidney is unremarkable without evidence of hydronephrosis, nephrolithiasis or solid mass. IMPRESSION: 1. No ultrasound evidence for an acute process. 2. Hepatic steatosis.
--- NOTE | 2023-01-15 21:21 | US ---
EXAMINATION TYPE: US abdomen APPY DATE OF EXAM: 01/15/2023 COMPARISON: NONE CLINICAL INDICATION: Female, 67 years old with history of rlq pain; RLQ when RESEARCH KENNEL SUPERVISOR pushed on it TECHNIQUE: Multiple sonographic images of the right lower quadrant were obtained with graded compress ion. FINDINGS: APPENDIX Is the appendix seen in its entirety from the proximal cecum to distal end: No Is there inflammatory changes or free fluid present: No CUSTODIAL SERVICES MANAGER NOTES: Appendix not visualized IMPRESSION: Nonvisualization of the appendix in the right lower quadrant. This does not exclude diagnosis of acut e appendicitis.
[2023-01-15 22:12] VITALS: BP 152/73; PULSE 89
== END 2023-01-15 22:17 | disposition home or self-care (01) ==
LOC: EC 17:38
DX: R10.11 Right upper quadrant pain (principal); R10.31 Right lower quadrant pain; L30.9 Dermatitis, unspecified; I10 Essential (primary) hypertension; E03.9 Hypothyroidism, unspecified; Z88.2 Allergy status to sulfonamides; Z91.012 Allergy to eggs; Z88.8 Allergy status to other drugs, medicaments and biological substances; Z79.890 Hormone replacement therapy; Z79.899 Other long term (current) drug therapy
CPT/HCPCS: 36415; 80053; 85652; 82150; 83605; 83690; 84484; 85025; 85610; 85730; 86140; 76705 ×2; 99285; 96374; 96375; 96361; J2405; J1885; 93005

== ENCOUNTER → 2023-10-30 | Outpatient (CLI) | payer MEDICARE ==
--- NOTE | 2023-11-13 14:33 | CT ---
EXAMINATION TYPE: CT angio head CT DLP: 2194.2 mGycm, Automated exposure control for dose reduction was used. DATE OF EXAM: 10/30/2023 2:23 PM COMPARISON: . CLINICAL INDICATION:Female, 68 years old with history of R51.9 HEADACHE UNSPEC; PHH, Headaches and na usea x2 months TECHNIQUE: Noncontrast CT head initially performed. Axially acquired helical CT angiogram of the head and neck was obtained with contrast utilizing 75 cc of Isovue-[id number] administered intravenously. Axial images are supplemented with 3D reconstructions whic h were post-processed at an independent workstation. NASCET criteria used. FINDINGS: CT head: Mild generalized atrophy with associated prominence of the ventricles/CSF spaces. No evidence of acut e intracranial hemorrhage, midline shift, or mass effect. No loss of werner-white matter distinction se en to suggest changes of acute territorial infarction. Mild scattered areas of white matter hypoatten uation are nonspecific, most often due to chronic microvascular ischemia. There is no evidence of an acute bony abnormality. Scattered mucosal thickening in the paranasal sinuses. Status post left masto idectomy changes. Right mastoid air cells are clear. Some calcifications are noted involving the larg er arteries near the skull base. Orbits and extra-axial soft tissues show no acute abnormalities. Bilateral lens replacements. CTA head: Vertebral arteries: The intracranial vertebral arteries are patent. Vertebral artery dominance: Left Basilar artery: The basilar artery is intact. The basilar artery bifurcation is normal. Internal Carotid arteries: The cervical, petrous, cavernous and supraclinoid segments are patent. Rig ht overall appear slightly smaller than left. 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 FINA: Right FINA is hypoplastic, the majority supply to both ACAs is from the left side. No evidence of aneurysm. ACOM: Present without evidence of aneurysm. MCA: Patent with no evidence of aneurysm. MED[employer] CONTACT SPECIALIST: Patent with no evidence of aneurysm. PCOM: Patent right P-comm. Dural sinuses: Patent. IMPRESSION: No evidence of high-grade stenosis or intracranial aneurysm.
== END | disposition home or self-care (01) ==
LOC: RADCTMAIN 13:22
PROVIDERS: ATTEND Family Medicine
DX: R51.9 Headache, unspecified (principal)
CPT/HCPCS: 70496; Q9967

== ENCOUNTER → 2024-07-27 | Outpatient (CLI) | payer MEDICARE ==
--- NOTE | 2024-07-27 11:21 | US ---
EXAMINATION TYPE: US abdomen comp/pelvis limited DATE OF EXAM: 07/27/2024 COMPARISON: CT 2019, US 2017 CLINICAL INDICATION: Female, 69 years old with history of R10.9 UNSPECIFIED ABDOMINAL PAIN; Pain for a few weeks. Hx left renal cancer, left nephrectomy. Patient states she had surgery on her right kidn ey as well. TECHNIQUE: Grayscale color Doppler imaging of the abdomen and pelvis. FINDINGS: EXAM MEASUREMENTS: Liver Length: 15.6 cm Gallbladder Wall: 0.28 cm CBD: 0.57 cm Spleen: 8.7 cm Right Kidney: 11.8 x 5.9 x 4.8 cm Left Kidney: Surgically absent Post Void Residual: Bladder not seen post-void Exam is limited due to gas. Pancreas: Tail is obscured. Liver: Limited due to gas. Many images taken intercostal and LLD. Gallbladder: Limited, no abnormalities seen. CBD: Appears wnl Spleen: Appears wnl Right Kidney: *Hypoechoic area seen medially at mid: 3.4 x 3.1 x 1.9 cm. Left Kidney: Surgically absent Upper IVC: Appears wnl Abd Aorta: Appears wnl, iliac arteries were obscured. Bladder: Appears anechoic. Bilateral Jets Seen Yes Normal Post Void Residual (normal less than 50ml) Yes IMPRESSION: 1. No evidence for acute process. 2. Right renal simple cyst. [facility], , 07/27/2024 11:19 AM
== END | disposition home or self-care (01) ==
LOC: RADUSWWP 09:23
PROVIDERS: ATTEND Family Medicine
DX: N28.1 Cyst of kidney, acquired (principal)
CPT/HCPCS: 76700; 76857